=== PATIENT | female | born 1970 | race Caucasian/White ===

== ENCOUNTER 2016-12-29 12:16 | Emergency (ER) | payer OTHER ==
[2016-12-29 12:45] VITALS: BP 144/72
--- NOTE | 2016-12-29 13:49 | RAD ---
Three-view left foot radiographs 12/29/2016 Clinical history: Twisting injury to to the left foot last night. AP, lateral and oblique digital radiographs of the left foot were obtained. Mild hallux valgus deformity is noted. Mild degenerative changes are seen involving the first MTP joint. No fracture or dislocation left foot is seen. Impression: No fracture or dislocation of the left foot is seen.
--- NOTE | 2016-12-29 13:59 | RAD ---
Three-view left ankle radiographs 12/29/2016 Clinical history: Fall with injury to the left ankle. AP, lateral and oblique digital radiographs of the left ankle were obtained. A left ankle mortise is intact. No acute fracture or dislocation of the left ankle is seen. A small bony density is seen inferior to the lateral malleolus of the left ankle which may represent an old avulsion fracture versus a secondary center of ossification. Mild degenerative changes are seen involving the left ankle joint. Mild enthesophyte formation is seen involving the posterior left calcaneus. Impression: No acute fracture or dislocation of the the left ankle is seen.
[2016-12-29] MEDS ORDERED: NAPR375T3 PO (14:11)
--- NOTE | 2016-12-29 14:11 | PHYS DOC ---
Past History Past Medical History: No Pertinent History, Other Past Surgical History: Other Alcohol Use: None Drug Use: None Adult General Chief Complaint Chief Complaint: MULTIPLE COMPLAINTS [facility] HPI Patient is a 46 female year old female who presents with points of left ankle and foot pain after falling off her porch just a couple feet with some mild pain with weightbearing no other injuries she also reports sinus congestion and pressure for the last 72 hours no yellow drainage or fever no sore throat no ear pain. Review of Systems Review of Systems Constitutional: Denies fever or chills [] Eyes: Denies change in visual acuity, redness, or eye pain [] HENT: Some mild nasal congestion no sore throat [] Respiratory: Denies cough or shortness of breath [] Cardiovascular: No additional information not addressed in HPI [] GI: Denies abdominal pain, nausea, vomiting, bloody stools or diarrhea [] : Denies dysuria or hematuria [] Musculoskeletal: Denies back pain . Planes of left ankle and foot pain [] Integument: Denies rash or skin lesions [] Neurologic: Denies headache, focal weakness or sensory changes [] Endocrine: Denies polyuria or polydipsia [] Allergies Allergies Allergies Coded Allergies Type Severity Reaction Last Updated Verified No Known Drug Allergies 04/07/14 No Physical Exam Physical Exam Constitutional: Well developed, well nourished, no acute distress, non-toxic appearance. [] HENT: Normocephalic, atraumatic, bilateral external ears normal, oropharynx moist, no oral exudates, nose normal. [] Eyes: PERRLA, EOMI, conjunctiva normal, no discharge. [] Neck: Normal range of motion, no tenderness, supple, no stridor. [] Cardiovascular:Heart rate regular rhythm, no murmur [] Lungs & Thorax: Bilateral breath sounds clear to auscultation [] Abdomen: Bowel sounds normal, soft, no tenderness, no masses, no pulsatile masses. [] Skin: Warm, dry, no erythema, no rash. [] Back: No tenderness, no CVA tenderness. [] Extremities: No tenderness, no cyanosis, no clubbing, ROM intact, no edema. [] Neurologic: Alert and oriented X 3, normal motor function, normal sensory function, no focal deficits noted. [] Psychologic: Affect normal, judgement normal, mood normal. [] Current Patient Data Vital Signs Vital Signs Date Time Temp Pulse Resp B/P (MAP) Pulse Ox O2 Delivery O2 Flow Rate FiO2 12/29/16 12:45 97.4 84 20 96 Room Air EKG EKG [] Radiology/Procedures Radiology/Procedures X-ray of the left foot and ankle is negative for fracture or dislocation per radiology report images reviewed by me. [] Course & Med Decision Making Course & Med Decision Making Pertinent Labs and Imaging studies reviewed. (See chart for details) [] Dragon Disclaimer Dragon Disclaimer This chart was dictated in whole or in part using Voice Recognition software in a busy, high-work load, and often noisy Emergency Department environment. It may contain unintended and wholly unrecognized errors or omissions. Departure Departure: Impression: Primary Impression: Left ankle sprain Additional Impressions: Sprain of left foot Sinus congestion Disposition: 01 HOME, SELF-CARE Condition: STABLE Referrals: RADHA LOTT DO (PCP) Patient Instructions: Ankle Sprain, [id number] Additional Instructions: Weight-bear as tolerated. Follow up with PCP in the next 3-4 days if ankle pain or foot pain is worse or cannot bear weight. Please try [id number] remedies for your sinus congestion including Zyrtec or Sudafed or steroid nasal spray or saline nose washes. Scripts Naproxen (NAPROXEN) 375 Mg Tablet 1 TAB PO BID for PAIN for 7 Days, #14 TAB 0 Refills Prov: KYLE CAMPO MD 12/29/16 Problem Qualifiers KYLE CAMPO MD Dec 29, 2016 14:11
== END 2016-12-29 14:20 | disposition home or self-care (01) ==
LOC: ER 12:16
DX: S93.402A Sprain of unspecified ligament of left ankle, initial encounter (principal); S93.602A Unspecified sprain of left foot, initial encounter; R09.81 Nasal congestion; W17.89XA Other fall from one level to another, initial encounter; Y93.89 Activity, other specified; Y99.8 Other external cause status; Y92.89 Other specified places as the place of occurrence of the external cause
CPT/HCPCS: 73610; 73630; 99284-25

== ENCOUNTER → 2019-10-07 | Outpatient (CLI) | payer OTHER ==
[~2019-10-07] MED LIST: NAPR-695 PO
[2019-10-07 10:18] LABS: HEMATOCRIT 46.2 % (36.0-47.0); HEMOGLOBIN 15.5 g/dL (12.0-15.5)
== END | disposition home or self-care (01) ==
LOC: LAB 09:55
DX: E83.110 Hereditary hemochromatosis (principal); K21.9 Gastro-esophageal reflux disease without esophagitis; Z79.899 Other long term (current) drug therapy
CPT/HCPCS: 36415; 85014; 85018; 99195

== ENCOUNTER → 2020-04-09 | Outpatient (CLI) | payer OTHER ==
[2020-04-09 10:36] LABS: HEMATOCRIT 42.7 % (36.0-47.0); HEMOGLOBIN 14.4 g/dL (12.0-15.5)
== END | disposition home or self-care (01) ==
LOC: LAB 09:52
DX: E83.110 Hereditary hemochromatosis (principal)
CPT/HCPCS: 36415; 85014; 85018; 99195

== ENCOUNTER → 2020-10-08 | Outpatient (CLI) | payer OTHER ==
[2020-10-08 09:54] LABS: HEMATOCRIT 44.9 % (36.0-47.0); HEMOGLOBIN 14.8 g/dL (12.0-15.5)
== END ==
LOC: LAB 09:28
PROVIDERS: ATTEND Clinical Nurse Specialist Family Health
DX: E83.110 Hereditary hemochromatosis (principal)
CPT/HCPCS: 36415; 85014; 85018; 99195

== ENCOUNTER → 2021-05-12 | Outpatient (CLI) | payer OTHER ==
[2021-05-12 09:59] LABS: HEMATOCRIT 45.2 % (36.0-47.0)
== END ==
LOC: LAB 09:39
DX: E83.110 Hereditary hemochromatosis (principal)
CPT/HCPCS: 36415; 85014; 85018; 99195

== ENCOUNTER → 2021-08-11 | Outpatient (CLI) | payer OTHER ==
[2021-08-11 09:49] LABS: HEMATOCRIT 45.4 % (36.0-47.0); HEMOGLOBIN 15.4 g/dL (12.0-15.5)
== END ==
LOC: LAB 09:31
DX: E83.110 Hereditary hemochromatosis (principal)
CPT/HCPCS: 36415; 85014; 85018; 99195